=== PATIENT | male | born 1955 | race African-American/Black ===

== ENCOUNTER 2017-07-24 00:29 | Emergency (ER) | payer MEDICAID ==
[~2017-07-24] VITALS: Ht 180.3 cm; Wt 65.3 kg
[2017-07-24] MEDS ORDERED: RENA-VITE RX T1 EAC1 PO (01:03)
[2017-07-24] MEDS ORDERED: BENAZEPRIL HCL10 MG ORAL (01:03)
[2017-07-24] MEDS ORDERED: CALCIUM ACETAT667 M1 PO (01:03)
[2017-07-24] MEDS ORDERED: AMLODIPINE BESY10 MG ORAL (01:03)
[2017-07-24] MEDS ORDERED: Surgicel 4in x 8in TOPIC ONE ×2 (01:52→02:15)
[2017-07-24 02:53] LABS: ANION GAP 8 mmol/L (5-15); CALCIUM 9.4 MG/DL (8.5-10.1); CARBON DIOXIDE 29 MMOL/L (21-32); CHLORIDE 100 MMOL/L (98-107); CREATININE 9.5 MG/DL (0.55-1.30); GLOMERULAR FILTRATION RATE 5.7 mL/min (>60); POTASSIUM 5.6 MMOL/L (3.5-5.1); SODIUM 137 MMOL/L (136-145)
--- NOTE | 2017-07-24 03:28 | Emergency Room Report ---
History of Present Illness General Chief Complaint: General Complaint Source: Patient Present Illness HPI Patient presents for complaints of bleeding from his left AV shunt This occurred just prior to arrival Patient reports that this has happened several times in the past his last dialysis was on Sunday He is due for dialysis later this morning Denies any chest pressure shortness of breath denies any back or flank pain Patient reports that he was tried to apply some pressure in his usually able to get control however the paramedics had put towels around the area which he feels presented the area from being controlled Denies any lightheadedness or weakness Allergies: Coded Allergies: No Known Allergies (Unverified , 07/24/17) Patient History Past Medical History: see triage record Pertinent Family History: none Reviewed Nursing Documentation: PMH: Agreed, PSxH: Agreed Nursing Documentation-PMH Hx Hypertension: Yes Hx Diabetes: Yes Hx Dialysis: Yes - ESRD Review of Systems All Other Systems: negative except mentioned in HPI Physical Exam Vital Signs Date Time Temp Pulse Resp B/P (MAP) Pulse Ox O2 Delivery O2 Flow Rate FiO2 07/24/17 00:19 97.5 72 16 184/88 98 Room Air Sp02 EP Interpretation: reviewed, normal General Appearance: well appearing, no apparent distress Head: normocephalic, atraumatic Eyes: bilateral eye PERRL, bilateral eye EOMI ENT: normal pharynx Neck: full range of motion, supple Respiratory: lungs clear, normal breath sounds Cardiovascular #1: regular rate, rhythm, no edema Gastrointestinal: normal bowel sounds, non tender Genitourinary: no CVA tenderness Musculoskeletal: normal inspection Neurologic: alert, oriented x3, responsive Skin: other - Heavy dressing applied to the left upper arm, evidence of blood in the dressing otherwise neurovascularly intact distally Lymphatic: normal inspection Medical Decision Making Diagnostic Impression: Primary Impression: bleeding AV shunt ER Course After initial observation the top layers of the dressing there were applied by paramedics were removed Surgeon seal was applied to the top layer of the AV shunt 4 x 4 dressing Kerlix dressing on top of this Objective control no has no signs of any active hemorrhage Patient tolerated the procedure well after initial observation patient potassium is 5.6 and was given appropriate medication for that and is stable for close outpatient followup Labs Test 07/24/17 02:25 Sodium Level 137 MMOL/L (136-145) Potassium Level 5.6 MMOL/L (3.5-5.1) Chloride Level 100 MMOL/L (98-107) Carbon Dioxide Level 29 MMOL/L (21-32) Anion Gap 8 mmol/L (5-15) Blood Urea Nitrogen 47 mg/dL (7-18) Creatinine 9.5 MG/DL (0.55-1.30) Estimat Glomerular Filtration Rate 5.7 mL/min (>60) Glucose Level 117 MG/DL (74-106) Calcium Level 9.4 MG/DL (8.5-10.1) Last Vital Signs Date Time Temp Pulse Resp B/P (MAP) Pulse Ox O2 Delivery O2 Flow Rate FiO2 07/24/17 00:19 97.5 72 16 184/88 98 Room Air Status: improved Disposition: HOME, SELF-CARE Condition: Improved Referrals: NOT CHOSEN IPA/MD,REFERRING (PCP) Patient Instructions: AV Fistula Placement, Care After Additional Instructions: Patient is provided with the discharge instructions notified to follow up with primary doctor in the next 2-3 days otherwise return to the er with any worsening symptoms. Please note that this report is being documented using [employer] technology. This can lead to erroneous entry secondary to incorrect interpretation by the dictating instrument. PIPER GOODSON D.O. Jul 24, 2017 03:28
[2017-07-24] MEDS ORDERED: Sodium Polystyrene Sulfonate 15gm Powder ORAL ONE (03:30)
[2017-07-24 03:39] VITALS: BP 172/81
[2017-07-24 03:44] VITALS: BP 172/81
== END 2017-07-24 03:44 | disposition home or self-care (01) ==
LOC: EDBD 00:29 → EMR 01:04
DX: T82.838A Hemorrhage due to vascular prosthetic devices, implants and grafts, initial encounter (principal); Y83.2 Surgical operation with anastomosis, bypass or graft as the cause of abnormal reaction of the patient, or of later complication, without mention of misadventure at the time of the procedure; Y92.89 Other specified places as the place of occurrence of the external cause; I12.0 Hypertensive chronic kidney disease with stage 5 chronic kidney disease or end stage renal disease; N18.6 End stage renal disease; Z99.2 Dependence on renal dialysis; E11.9 Type 2 diabetes mellitus without complications
CPT/HCPCS: 36415; 80048; 99283; Z7502